=== PATIENT | female | born 1985 | race American Indian/Alaskan Native ===

== ENCOUNTER 2021-06-10 20:24 | Emergency (ER) | payer OTHER ==
--- NOTE | 2021-06-10 20:41 | Emergency Department Report ---
ED General Adult HPI - General Stated complaint: TAKE OUT STICHES Time Seen by Provider: 06/10/21 20:37 Source: patient, RN notes reviewed Limitations: No Limitations - History of Present Illness Initial comments: Patient 36-year-old female who presents for suture removal for left knee laceration sustained on 05/29/2021. Patient denies pain no drainage no symptoms of fever or infection. Remains amatory with steady gait range of motion is intact there are no other symptoms. ED Review of Systems ROS: Stated complaint: TAKE OUT STICHES Other details as noted in HPI Constitutional: denies: chills, fever Eyes: denies: eye pain, eye discharge, vision change ENT: denies: ear pain, throat pain Respiratory: denies: cough, shortness of breath, wheezing Cardiovascular: denies: chest pain, palpitations Endocrine: no symptoms reported Gastrointestinal: denies: abdominal pain, nausea, diarrhea Genitourinary: as per HPI Musculoskeletal: denies: back pain, joint swelling, arthralgia Skin: other (sutures x 8 to left anterior knee, edges). denies: rash, lesions Neurological: denies: headache, weakness, paresthesias Psychiatric: as per HPI Hematological/Lymphatic: denies: easy bleeding, easy bruising ED Physical Exam - General General appearance: alert, in no apparent distress - Head Head exam: Present: atraumatic, normocephalic - Eye Eye exam: Present: normal appearance, EOMI Pupils: Present: normal accommodation - ENT ENT exam: Present: mucous membranes moist - Neck Neck exam: Present: normal inspection, full ROM. Absent: tenderness - Respiratory Respiratory exam: Present: normal lung sounds bilaterally. Absent: respiratory distress - Cardiovascular Cardiovascular Exam: Present: regular rate, normal rhythm, normal heart sounds. Absent: systolic murmur, diastolic murmur, rubs, gallop - GI/Abdominal GI/Abdominal exam: Present: soft, normal bowel sounds. Absent: distended, tenderness - Rectal Rectal exam: Present: deferred - Extremities Exam Extremities exam: Present: normal inspection, full ROM, tenderness (mild tenderness left anterior knee laceration site, no bleeding no drainage no symptoms of infection), normal capillary refill - Expanded Lower Extremity Exam Left Knee exam: Present: swelling, erythema (at suture site no drain fever or crepitus ), full knee extension. Absent: pain w/ pronation/supination Neuro vascular tendon exam: Absent: pulse deficit Gait: Positive: observed and normal - Back Exam Back exam: Present: normal inspection, full ROM. Absent: tenderness - Neurological Exam Neurological exam: Present: alert, oriented X3, CN II-XII intact, normal gait. Absent: motor sensory deficit - Expanded Neurological Exam Expanded Patient oriented to: Present: person, place, time Motor strength exam: RLE: 5, LLE: 5 Best Eye Response ([place]): (4) open spontaneously Best Motor Response ([place]): (6) obeys commands Best Verbal Response ([place]): (5) oriented Elizabeth Total: 15 - Psychiatric Psychiatric exam: Present: normal affect, normal mood - Skin Skin exam: Present: warm, dry, normal color, other (laceration repair as above ). Absent: rash ED Medical Decision Making - Medical Decision Making Sutures removed per nursing staff, edges remain well approximated there is no drainage no crepitus there is mild erythema no other symptoms of infection, discussed wound care with patient patient verbalized understanding of same will follow up with primary care doctor in 2 to 3 days. Patient will be DC'd home in stable condition at this time Critical care attestation.: If time is entered above; I have spent that time in minutes in the direct care of this critically ill patient, excluding procedure time. ED Disposition Clinical Impression: Visit for suture removal Disposition: 01 HOME / SELF CARE / HOMELESS Is pt being admited?: No Does the pt Need Aspirin: No Condition: Stable Instructions: Wound Closure Removal, Care After Referrals: GREGG CUELLAR MD [Staff Physician] - 3-5 Days Forms: Work/School Release Form(ED) Time of Disposition: 20:43
[2021-06-10 20:48] VITALS: BP 122/60
== END 2021-06-10 21:12 | disposition home or self-care (01) ==
LOC: ED 20:24
DX: S81.012D Laceration without foreign body, left knee, subsequent encounter (principal); X58.XXXD Exposure to other specified factors, subsequent encounter
CPT/HCPCS: 99282

== ENCOUNTER 2021-07-02 17:50 | Emergency (ER) | payer SELFPAY ==
--- NOTE | 2021-07-02 18:24 | Emergency Department Report ---
<JULIO CESAR FARMER - Last Filed: 07/02/21 21:17> ED General Adult HPI - General Chief complaint: Extremity Problem,Nontraumatic Stated complaint: POSS BLOOD CLOT BACK OF LFT LEG Time Seen by Provider: 07/02/21 18:20 Source: patient Mode of arrival: Ambulatory Limitations: No Limitations - History of Present Illness Initial comments: 36-year-old -[place] female patient presents with complaints of lower left leg swelling and redness x3 days. She denies any injury to the area or fever/chills/sweats. No difficulty moving her leg or numbness/tingling/weakness in the leg per patient. She reports 3 weeks ago she was treated for an infected wound in the left knee and did complete her antibiotics and her symptoms did resolve. No history of DVT/PE per patient. She also denies any hormone use or recent long travel or hemoptysis/shortness of breath -: Sudden - Related Data Previous Rx's Medication Instructions Recorded Last Taken Type Sulfamethoxazole/Trimethoprim 1 each PO BID 7 Days #14 tablet 07/02/21 Unknown Rx [Bactrim DS TAB] Triamcinolone Acetonide 15 gm TP TID PRN #1 oint...g. 07/02/21 Unknown Rx Allergies Allergy/AdvReac Type Severity Reaction Status Date / Time No Known Allergies Allergy Unverified 06/10/21 20:45 ED Review of Systems Constitutional: denies: chills, fever, malaise Respiratory: denies: cough, shortness of breath Cardiovascular: denies: chest pain Musculoskeletal: denies: joint swelling, arthralgia Skin: change in color Neurological: denies: numbness, paresthesias ED Past Medical Hx - Past Medical History Previous Medical History?: No - Surgical History Past Surgical History?: No - Social History Smoking Status: Never Smoker Substance Use Type: None - Medications Home Medications: Home Medications Medication Instructions Recorded Confirmed Last Taken Type Sulfamethoxazole/Trimethoprim 1 each PO BID 7 Days #14 tablet 07/02/21 Unknown Rx [Bactrim DS TAB] Triamcinolone Acetonide 15 gm TP TID PRN #1 oint...g. 07/02/21 Unknown Rx ED Physical Exam - General Limitations: No Limitations General appearance: alert, in no apparent distress - Head Head exam: Present: atraumatic, normocephalic - Eye Eye exam: Present: normal appearance - Respiratory Respiratory exam: Present: normal lung sounds bilaterally. Absent: respiratory distress - Cardiovascular Cardiovascular Exam: Present: regular rate, normal rhythm - Neurological Exam Neurological exam: Present: alert, oriented X3 - Psychiatric Psychiatric exam: Present: normal affect, normal mood - Skin Skin exam: Present: warm, dry, intact, erythema (3 to 4 cm area of erythema noted to left lower posterior leg with tenderness to palpation; pedal pulses; patient has full range of motion of the lower leg and). Absent: rash ED Medical Decision Making - Medical Decision Making 36-year-old -[place] female patient presents with complaints of lower left leg swelling and redness x3 days. She denies any injury to the area or fever/chills/sweats. No difficulty moving her leg or numbness/tingling/weakness in the leg per patient. She reports 3 weeks ago she was treated for an infected wound in the left knee and did complete her antibiotics and her symptoms did resolve. No history of DVT/PE per patient. She also denies any hormone use or recent long travel or hemoptysis/shortness of breath ED Disposition Clinical Impression: Left leg pain Disposition: 01 HOME / SELF CARE / HOMELESS Is pt being admited?: No Condition: Stable Instructions: Cellulitis, Adult Prescriptions: Sulfamethoxazole/Trimethoprim [Bactrim DS TAB] 1 each PO BID 7 Days #14 tablet Triamcinolone Acetonide 15 gm TP TID PRN #1 oint...g. PRN Reason: swelling, pain Referrals: PRIMARY CARE, [Referring] - 3-5 Days <JESSEE GARRISON - Last Filed: 07/02/21 23:54> ED Review of Systems ROS: Stated complaint: POSS BLOOD CLOT BACK OF LFT LEG Other details as noted in HPI ED Course Vital Signs 07/02/21 18:08 Temperature 98.2 F Pulse Rate 86 Respiratory 16 Rate Blood Pressure 136/57 [Left] O2 Sat by Pulse 98 Oximetry ED Medical Decision Making - Medical Decision Making Care of patient transferred to Jessee Garrison PA-C at change of shift pending radiology results. Venous duplex ultrasound is negative for DVT. Critical care attestation.: If time is entered above; I have spent that time in minutes in the direct care of this critically ill patient, excluding procedure time. ED Disposition Is pt being admited?: No Does the pt Need Aspirin: No Time of Disposition: 23:54
--- NOTE | 2021-07-02 23:49 | Vascular Lab Report ---
DUPLEX DOPPLER LOWER EXTREMITY VEINS, LEFT INDICATION / CLINICAL INFORMATION: pain, erythema lower leg. TECHNIQUE: Duplex doppler imaging was performed through the veins of the left lower extremity using v enous compression and other maneuvers. COMPARISON: None available. FINDINGS: LEFT COMMON FEMORAL VEIN: Negative. LEFT FEMORAL VEIN: Negative. LEFT POPLITEAL VEIN: Negative. LEFT CALF VEINS: Negative. ADDITIONAL FINDINGS: None. IMPRESSION: 1. No sonographic evidence for DVT in the left lower extremity. Signer Name: Brady Avila DO Signed: 07/02/2021 11:45 PM Workstation Name: [id number]
[2021-07-03 00:31] VITALS: BP 128/70
== END 2021-07-03 00:30 | disposition home or self-care (01) ==
LOC: ED 17:50
DX: M79.662 Pain in left lower leg (principal); M79.89 Other specified soft tissue disorders
CPT/HCPCS: 99283